=== PATIENT | female | born 2000 | race Caucasian/White ===

== ENCOUNTER 2025-03-02 07:03 | Day surgery (SDC) | payer OTHER ==
[~2025-03-02] VITALS: Ht 154.9 cm; Wt 119.7 kg
[~2025-03-02 07:03] MED LIST: ACET-897 PO; LIDOCAINE 2% 100 MG/5 ML SDV (FOR ANES.) As Ordered ONE; ONDANSETRON 4MG 2ML VIAL As Ordered ONE; OXYMETAZOLINE 0.05% NASAL SPRAY As Ordered ONE; ROCURONIUM BROMIDE 50MG/5ML VIAL As Ordered ONE; SUGAMMADEX SODIUM 500 MG/5 ML VIAL As Ordered ONE; dexAMETHasone 4 MG/ML 1 ML VIAL As Ordered ONE
[2025-03-02] MEDS ORDERED: MIDAZOLAM INJ 2 MG/2 ML VIAL As Ordered ONE (07:04)
[2025-03-02] MEDS ORDERED: LR 1,000 ML IV SCH (07:45)
[2025-03-02] MEDS ORDERED: dexAMETHasone 4 MG/ML 1 ML VIAL IV ONE (08:15)
[2025-03-02] MEDS ORDERED: ACETAMINOPHEN 1000MG/100ML IV BAG As Ordered ONE (08:37)
[2025-03-02] MEDS: CLINDAMYCIN 900 MG in IV 1 EA IV ONE (08:37)
[2025-03-02] MEDS: CHLORHEXIDINE GLUCONATE 0.12% 15 ML UDC As Ordered ONE (09:05)
[2025-03-02] MEDS: CLINDAMYCIN 900 MG/50 ML PREMIX BAG As Ordered ONE (09:06)
[2025-03-02] MEDS ORDERED: KETOROLAC 30 MG/ML 1 ML VIAL As Ordered ONE (09:55)
[2025-03-02] MEDS: ONDANSETRON 4MG 2ML VIAL IV PRN (11:12)
[2025-03-02] MEDS: HYDROMORPHONE HCL 0.5 MG/0.5 ML SYRINGE IV PRN (11:13)
[2025-03-02 12:27] VITALS: BP 116/59; TEMP 97.5; O2SAT 98
== END 2025-03-02 12:29 | disposition home or self-care (01) ==
LOC: M SDC 07:03
PROVIDERS: ATTEND Dentist
DX: K02.9 Dental caries, unspecified (principal); F40.232 Fear of other medical care; Z68.43 Body mass index [BMI] 50.0-59.9, adult; Z88.0 Allergy status to penicillin; F17.200 Nicotine dependence, unspecified, uncomplicated
CPT/HCPCS: 88300; D7140; D7210; J0131; J0666; J0737; J1100; J1171; J1885; J2250; J2405; J2765; J3010